=== PATIENT | female | born 1970 | race Caucasian/White ===

== ENCOUNTER → 2019-10-20 09:11 | Outpatient (BNVA) | payer OTHER, SELFPAY | PROVIDERS: Family Provider Family Medicine; PCP Family Medicine; Referring Provider Family Medicine; Visit Provider Specialist | DX: G56.03 Carpal tunnel syndrome, bilateral upper limbs (principal) | CPT/HCPCS: 95910 ==

== ENCOUNTER → 2020-10-23 16:05 | Outpatient (BNVA) | payer OTHER, SELFPAY | PROVIDERS: Family Provider Family Medicine; PCP Family Medicine; Visit Provider Internal Medicine | DX: Z01.812 Encounter for preprocedural laboratory examination (principal) | CPT/HCPCS: 87635 ==

== ENCOUNTER 2020-10-30 08:49 | Day surgery (SDC) | payer OTHER, SELFPAY ==
[2020-10-25 15:37] VITALS: BMI 38.4
--- NOTE | 2020-10-30 09:05 | ANES.PREANE2 ---
Pre-Anesthetic Assessment Pre-Anesthetic Assessment: Height/Weight: Height 1.68 m Weight 107.955 kg Proposed Procedure: Operation Date: 10/30/20 10:15 Proposed Procedures p Colonoscopy 98053 K92.1(Not Applicable) - Chris Howell MD Was Beta John taken within 24 hours: N/A Was Clonidine taken within 24 hours: N/A Social: Social History: Tobacco and No alcohol Exam: Pre-Anes Outpt Exam: alert, oriented x 3 and regular rate & rhythm Airway: Submandibular: WNL Cervical ROM: WNL MP: 2 Dentition: False Pulmonary: Pulmonary: COPD CV/HEM: CV/HEM: HTN Metabolic: Metabolic: Hyperlipidemia, Morbid obesity and Thyroid Anesthetic Plan: ASA status: 3 Anesthesia: MAC Risk of > 500 ml blood loss (7ml/kg in children): No PFSH Anesthesia PFSH: Medical History (Updated 10/18/20 @ 13:48 by Chris Howell MD) Chronic back pain GERD (gastroesophageal reflux disease) Hyperlipidemia Hypertension Hypothyroidism Obesity Surgical History History of esophagogastroduodenoscopy (EGD) (~2017) History of surgery on arm (~2014) LEFT ARM-TENDON REPAIR History of thyroidectomy Status post tonsillectomy (~2013) Family History Father Hypertension Cancer PANCREATIC Diabetes Obesity Mother Hypertension Obesity Denies family history of Anesthesia complication Bleeding disorder Social History Smoking and tobacco status: current every day smoker cigarettes Data Anesthesia Cardiac Studies: No Data to Display
[2020-10-30 09:14] VITALS: RESP 18; TEMP 36.7
--- NOTE | 2020-10-30 09:18 | P.HP_ITS ---
Same Day Surgery H&P Indication for Procedure/HPI DATE OF PROCEDURE: October 30, 2020 CHIEF COMPLAINT/INDICATIONFOR SURGICAL PROCEDURE: Hematochezia PREOP DIAGNOSIS: bleeding PLANNED PROCEDRUE: Operation Date: 10/30/20 10:15 Proposed Procedures p Colonoscopy 09739 K92.1(Not Applicable) - Chris Howell MD Medications/Allergies* Home Medications Medication Instructions Recorded Confirmed Type atorvastatin 20 mg tablet 20 mg PO DAILY 04/21/19 10/25/20 History levothyroxine 175 mcg tablet 175 mcg PO DAILY 04/21/19 10/25/20 History liothyronine 5 mcg tablet 5 mcg PO DAILY 04/21/19 10/25/20 History lisinopril 20 1 tab PO DAILY 04/21/19 10/25/20 History mg-hydrochlorothiazide 25 mg tablet Allergies/Adverse Reactions Allergy/AdvReac Type Severity Reaction Status Date / Time No Known Allergies Allergy Verified 10/18/20 13:05 Pertinent History/Comorbid Conditions* Medical History (Updated 10/18/20 @ 13:48 by Chris Howell MD) Chronic back pain GERD (gastroesophageal reflux disease) Hyperlipidemia Hypertension Hypothyroidism Obesity Surgical History (Updated 04/23/19 @ 15:44 by Desmond Hernandez MD) History of esophagogastroduodenoscopy (EGD) (~2017) History of surgery on arm (~2014) LEFT ARM-TENDON REPAIR History of thyroidectomy Status post tonsillectomy (~2013) Family History (Updated 04/21/19 @ 10:22 by Ellie Yo RN) Diabetes Father Cancer Father PANCREATIC Hypertension Father Mother Obesity Father Mother Denies family history of Anesthesia complication Bleeding disorder Social History Smoking and tobacco status: current every day smoker cigarettes Pertinent Exam Findings alert, oriented x 3, clear to auscultation bilaterally, regular rate & rhythm, operative site marked and procedure specific exam findings Recommendations Surgery/Procedure today Coding Level of Care Code Acute Electrical Maintenance Technician for Antonia Fitzgerald
[2020-10-30 09:20] VITALS: BP 128/95; PULSE 82; RESP 16; TEMP 36.7; O2SAT 95
[2020-10-30] MEDS: sodium chloride 0.9% 1,000 ML 30 ML IV (09:23)
[2020-10-30 11:18] VITALS: BP 115/84; PULSE 76; RESP 16; TEMP 36.3; O2SAT 95
[2020-10-30 11:25] VITALS: BP 126/90; PULSE 75; RESP 16; O2SAT 100
--- NOTE | 2020-10-30 15:31 | ANE.PACU2 ---
Inpatient post-anesthesia follow up: Airway intact: Yes Vital signs: Temperature 97.4 F Pulse Rate 75 Respiratory Rate 16 Blood Pressure 126/90 Pulse Oximetry 100 Oxygen Delivery Me thod Room Air Oxygen Flow Rate Fraction of Inspir ed Oxygen Hydration adequate: Yes Nausea and vomiting: No Pain level: 1 Mental status: Baseline
== END 2020-10-30 11:50 | disposition home or self-care (01) ==
PROVIDERS: PCP Family Medicine; Visit Provider Internal Medicine
PROC: 0DJD8ZZ Inspection of Lower Intestinal Tract, Via Natural or Artificial Opening Endoscopic (ICD-10-PCS; CPT 45378; principal; 2020-10-30 10:15)
DX: K92.1 Melena (principal); K21.9 Gastro-esophageal reflux disease without esophagitis; E78.5 Hyperlipidemia, unspecified; I10 Essential (primary) hypertension; E03.9 Hypothyroidism, unspecified; E66.01 Morbid (severe) obesity due to excess calories; Z68.38 Body mass index [BMI] 38.0-38.9, adult; F17.210 Nicotine dependence, cigarettes, uncomplicated; J44.9 Chronic obstructive pulmonary disease, unspecified
CPT/HCPCS: 45378; 96360; 96361; J2704; J7030

== ENCOUNTER 2021-01-28 16:41 | Emergency (ER) | payer OTHER, SELFPAY ==
--- NOTE | 2021-01-28 16:49 | ED_ITS ---
Documented by User: Silverio Maxwell MD 02/03/21 00:44 HPI - General Adult General: Chief complaint: General Medical Stated complaint: high BP Time Seen by Provider: 01/28/21 16:49 History of Present Illness: HPI narrative: Ms. Ng is a 50-year-old lady with significant past medical history of hypertension, hyperlipidemia, obesity, and hypothyroidism who presents emergency department due to concern for high blood pressure. She reports recent changes in health starting approximately 3 weeks ago. She had a mechanical fall where she fell on outstretched hands. No preceding chest pain, shortness of breath, lightheadedness, dizziness. She was able to ambulate afterwards. No head strike or loss of consciousness. Since that time she has had generalized symptoms of malaise, fatigue, aches, pains. She denies other specific infectious symptoms. She has tracked her blood pressure and noted that is it is elevated despite compliance with her medication regimen. Overall the intensity symptoms is moderate. The course has persisted. No other specific exacerbating or alleviating factors identified. Review of Systems General: Reports: 10 or more systems reviewed and unremarkable except in HPI and below PFSH ED PFSH: Medical History (Updated 01/28/21 @ 19:48 by Micheline Paredes MD) Chronic back pain GERD (gastroesophageal reflux disease) Hyperlipidemia Hypertension Hypothyroidism Obesity Surgical History History of esophagogastroduodenoscopy (EGD) (~2017) History of surgery on arm (~2014) LEFT ARM-TENDON REPAIR History of thyroidectomy Status post tonsillectomy (~2013) Family History Father Hypertension Cancer PANCREATIC Diabetes Obesity Mother Hypertension Obesity Denies family history of Anesthesia complication Bleeding disorder Social History Smoking and tobacco status: current every day smoker cigarettes Physical Exam Narrative: EXAM NARRATIVE: GENERAL/CONSTITUTIONAL - well-appearing. No acute distress. Eyes - PERRL, no conjunctival injection ENMT - Atraumatic external nose and ears. Moist mucous membranes NECK - supple. trachea midline CARDIOVASCULAR - regular rate and rhythm. RESPIRATORY -clear to auscultation bilaterally. ABDOMEN/GI - Nontender/Nondistended. No tenderness to percussion or evidence of peritonitis MSK - tenderness palpation of lumbar spine mostly paraspinal region though some midline. Extremities without obvious deformity or tenderness to palpation SKIN - Warm, Dry NEURO - alert and appropriately oriented. No focal neurologic deficits. Course ED course: - Patient was seen and evaluated by me at bedside - Patient placed on cardiac monitors, IV access obtained - Initial evaluation notable for no acute distress, nontoxic appearance. Mild hypertension noted. - Labs notable for no evidence of endorgan dysfunction related to high blood pressure - Imaging notable for negative chest and lumbar spine - TSH is notably elevated. Patient care handed off to overnight physician Dr. Paredes pending free T4 results and reassessment of patient condition. I did discuss with the patient reason for avoiding acute treatment of mild to moderately elevated blood pressures in the emergency department prior to handoff of care. Vital Signs: Vital signs: Vital Signs Temperature 98.2 F 01/28/21 16:56 Pulse Rate 67 01/28/21 20:30 Respiratory Rate 16 01/28/21 20:30 Blood Pressure 121/89 01/28/21 20:30 Pulse Oximetry 94 01/28/21 20:30 MDM - General Adult Medical Records: Attestation: I reviewed the patient's medical records. Lab Data: Attestation: I reviewed the patient's lab results. Labs: Lab Results 01/28/21 01/28/21 01/28/21 17:21 17:21 17:21 WBC 11.8 10^3/uL H 10 ^3/uL (4.0-10.0) RBC 5.38 10^6/uL H 10 ^6/uL (4.1-5.3) Hgb 16.2 g/dL H g/dL (11.5-15.3) Hct 47.3 % H % (37.0-47.0) MCV 87.9 fl fl (81-99) MCH 30.1 pg pg (28.0-34.0) MCHC 34.2 g/dL g/dL (30.0-36.0) RDW 14.9 % % (12.1-15.1) Plt Count 310 10^3/cmm 10^3 /cmm (130-400) MPV 10.4 fL fL (7.4-10.4) Neut % (Auto) 62.4 % % Lymph % (Auto) 28.3 % % [place] % (Auto) 6.0 % % Eos % (Auto) 2.3 % % Baso % (Auto) 0.6 % % Neut # (Auto) 7.38 10^3/uL 10^3 /uL (1.8-7.7) Lymph # (Auto) 3.3 10^3/uL 10^3/ uL (0.8-4.8) [place] # (Auto) 0.7 10^3/uL 10^3/ uL (0.2-0.9) Eos # (Auto) 0.3 10^3/uL 10^3/ uL (0.0-0.8) Baso # (Auto) 0.1 10^3/uL 10^3/ uL (0.0-0.1) Nucleated RBC % (a uto) 0 % % Nucleated RBCs # 0.0 /100WBC /100W BC Sodium 136 mmol/L mmol/L (136-145) Potassium 4.1 mmol/L mmol/L (3.5-5.1) Chloride 98 mmol/L mmol/L (98-107) Carbon Dioxide 26 mmol/L mmol/L (22-29) Anion Gap 16.1 (5-19) BUN 9 mg/dL mg/dL (6-20) Creatinine 0.8 mg/dL mg/dL (0.5-0.9) GFR Calculation 76.6 mL/min L mL/ min (90-130) Glucose 95 mg/dL mg/dL (65-115) Calculated Osmolal ity 280 mOsm/kg L mOs m/kg (285-295) Calcium 9.3 mg/dL mg/dL (8.5-10.5) TSH 51.06 uIU/mL H uI U/mL (0.27-4.20) Free T4 0.39 ng/dL L ng/d L (0.82-1.77) HCG, Qual Urine Color Urine Appearance Urine pH Ur Specific Gravit y Urine Protein Urine Glucose (UA) Urine Ketones Urine Blood Urine Nitrate Urine Bilirubin Urine Urobilinogen Ur Leukocyte Mellissa ase 01/28/21 01/28/21 17:35 17:35 WBC RBC Hgb Hct MCV MCH MCHC RDW Plt Count MPV Neut % (Auto) Lymph % (Auto) [place] % (Auto) Eos % (Auto) Baso % (Auto) Neut # (Auto) Lymph # (Auto) [place] # (Auto) Eos # (Auto) Baso # (Auto) Nucleated RBC % (a uto) Nucleated RBCs # Sodium Potassium Chloride Carbon Dioxide Anion Gap BUN Creatinine GFR Calculation Glucose Calculated Osmolal ity Calcium TSH Free T4 HCG, Qual Negative (Negative) Urine Color Straw (Yellow) Urine Appearance Clear (CLEAR) Urine pH 6 (5-7) Ur Specific Gravit y 1.020 (1.005-1.030) Urine Protein Neg (Negative) Urine Glucose (UA) Norm (Normal) Urine Ketones Negative (Negative) Urine Blood Neg (Negative) Urine Nitrate Negative (Negative) Urine Bilirubin Neg (Negative) Urine Urobilinogen Norm mg/dL mg/dL (Negative) Ur Leukocyte Mellissa ase Negative (Negative) EKG Data^: EKG 1: Attestation: I personally reviewed and interpreted this EKG as follows: EKG interpretation date: 01/28/21 EKG interpretation time: 17:33 Interpretation: Twelve-lead EKG shows a regular rhythm at a rate of 77. AR interval 146, QRS duration 88, QTc 399. Normal axis. Interpretation: Sinus rhythm. Computer generated interpretation: Chest X-Ray 01/28/21 17:09 IMPRESSION: No acute findings. Radiation Dose CTDIVOL = (mGy): DLP = (mGy-cm) Lumbar Spine X-Ray 01/28/21 17:09 IMPRESSION: 1. Mild degenerative disc space loss and facet arthropathy greatest at L4-S1. 2. No acute vertebral fracture/subluxation. Radiation Dose CTDIVOL = (mGy): DLP = (mGy-cm) Discharge Plan Discharge Patient Disposition: Home Clinical Impression: Hypothyroidism Qualifiers: Hypothyroidism type: unspecified Qualified Code(s): E03.9 - Hypothyroidism, unspecified Condition: Stable Prescriptions: New Synthroid 200 mcg tablet 200 mcg PO DAILY Qty: 60 RF: 0 Discontinued levothyroxine [Synthroid] 175 mcg tablet 175 mcg PO DAILY RF: 0 No Action atorvastatin 20 mg tablet 20 mg PO DAILY RF: 0 liothyronine 5 mcg tablet 5 mcg PO DAILY RF: 0 lisinopril-hydrochlorothiazide 20-25 mg tablet 1 tab PO DAILY RF: 0 Discharge Orders: Discharge ED (Routine); Ordered 01/28/21 Ordered By: Micheline Paredes Referrals: Anil Lutz DO [Primary Care Provider] - 1-3 days Discharge Diet: Advance as tolerated Discharge Activity: Resume usual activity Patient Instructions: Hypothyroidism (ED) Coding Level of Care Code ED User Interface Engineer for Chg Fwd Documented by User: Micheline Paredes MD 01/28/21 20:36 HPI - General Adult General: Chief complaint: General Medical Stated complaint: high BP Time Seen by Provider: 01/28/21 16:49 PFSH ED PFSH: Medical History (Updated 01/28/21 @ 19:48 by Micheline Paredes MD) Chronic back pain GERD (gastroesophageal reflux disease) Hyperlipidemia Hypertension Hypothyroidism Obesity Surgical History History of esophagogastroduodenoscopy (EGD) (~2017) History of surgery on arm (~2014) LEFT ARM-TENDON REPAIR History of thyroidectomy Status post tonsillectomy (~2013) Family History Father Hypertension Cancer PANCREATIC Diabetes Obesity Mother Hypertension Obesity Denies family history of Anesthesia complication Bleeding disorder Social History Smoking and tobacco status: current every day smoker cigarettes Course Vital Signs: Vital signs: Vital Signs Temperature 98.2 F 01/28/21 16:56 Pulse Rate 67 01/28/21 20:30 Respiratory Rate 16 01/28/21 20:30 Blood Pressure 121/89 01/28/21 20:30 Pulse Oximetry 94 01/28/21 20:30 MDM - General Adult MDM Narrative: Medical decision making narrative: Patient presents here with some weakness found to be hypothyroid. She has had her thyroid takes 175 mcg of Synthroid a day. Her TSH here was elevated will increase her thyroid to 200 mics and she is to follow-up with PCP in 1 to 2 weeks. She is return if worsening she understands agrees to plan. Lab Data: Labs: Lab Results 01/28/21 01/28/21 01/28/21 17:21 17:21 17:21 WBC 11.8 10^3/uL H 10 ^3/uL (4.0-10.0) RBC 5.38 10^6/uL H 10 ^6/uL (4.1-5.3) Hgb 16.2 g/dL H g/dL (11.5-15.3) Hct 47.3 % H % (37.0-47.0) MCV 87.9 fl fl (81-99) MCH 30.1 pg pg (28.0-34.0) MCHC 34.2 g/dL g/dL (30.0-36.0) RDW 14.9 % % (12.1-15.1) Plt Count 310 10^3/cmm 10^3 /cmm (130-400) MPV 10.4 fL fL (7.4-10.4) Neut % (Auto) 62.4 % % Lymph % (Auto) 28.3 % % [place] % (Auto) 6.0 % % Eos % (Auto) 2.3 % % Baso % (Auto) 0.6 % % Neut # (Auto) 7.38 10^3/uL 10^3 /uL (1.8-7.7) Lymph # (Auto) 3.3 10^3/uL 10^3/ uL (0.8-4.8) [place] # (Auto) 0.7 10^3/uL 10^3/ uL (0.2-0.9) Eos # (Auto) 0.3 10^3/uL 10^3/ uL (0.0-0.8) Baso # (Auto) 0.1 10^3/uL 10^3/ uL (0.0-0.1) Nucleated RBC % (a uto) 0 % % Nucleated RBCs # 0.0 /100WBC /100W BC Sodium 136 mmol/L mmol/L (136-145) Potassium 4.1 mmol/L mmol/L (3.5-5.1) Chloride 98 mmol/L mmol/L (98-107) Carbon Dioxide 26 mmol/L mmol/L (22-29) Anion Gap 16.1 (5-19) BUN 9 mg/dL mg/dL (6-20) Creatinine 0.8 mg/dL mg/dL (0.5-0.9) GFR Calculation 76.6 mL/min L mL/ min (90-130) Glucose 95 mg/dL mg/dL (65-115) Calculated Osmolal ity 280 mOsm/kg L mOs m/kg (285-295) Calcium 9.3 mg/dL mg/dL (8.5-10.5) TSH 51.06 uIU/mL H uI U/mL (0.27-4.20) Free T4 0.39 ng/dL L ng/d L (0.82-1.77) HCG, Qual Urine Color Urine Appearance Urine pH Ur Specific Gravit y Urine Protein Urine Glucose (UA) Urine Ketones Urine Blood Urine Nitrate Urine Bilirubin Urine Urobilinogen Ur Leukocyte Mellissa ase 01/28/21 01/28/21 17:35 17:35 WBC RBC Hgb Hct MCV MCH MCHC RDW Plt Count MPV Neut % (Auto) Lymph % (Auto) [place] % (Auto) Eos % (Auto) Baso % (Auto) Neut # (Auto) Lymph # (Auto) [place] # (Auto) Eos # (Auto) Baso # (Auto) Nucleated RBC % (a uto) Nucleated RBCs # Sodium Potassium Chloride Carbon Dioxide Anion Gap BUN Creatinine GFR Calculation Glucose Calculated Osmolal ity Calcium TSH Free T4 HCG, Qual Negative (Negative) Urine Color Straw (Yellow) Urine Appearance Clear (CLEAR) Urine pH 6 (5-7) Ur Specific Gravit y 1.020 (1.005-1.030) Urine Protein Neg (Negative) Urine Glucose (UA) Norm (Normal) Urine Ketones Negative (Negative) Urine Blood Neg (Negative) Urine Nitrate Negative (Negative) Urine Bilirubin Neg (Negative) Urine Urobilinogen Norm mg/dL mg/dL (Negative) Ur Leukocyte Mellissa ase Negative (Negative) Imaging Data^: Other Xray: Attestation: I personally reviewed and interpreted this imaging study as follows: Radiologist's impression: [address] [place] [address] XRay Report Signed Patient: Tara Ng Unit #: [id number] : 1970 Age/Sex: 50 / F ADM Date: 01/28/21 Loc: ER Room/Bed: Attending Dr: Ordering Provider/Ordering MD: Silverio Maxwell MD Date of Service: 01/28/21 Procedure(s): XR lumbar spine 2-3V* [id number] Accession Number(s): [id number] Report Number: [id number] PROCEDURE INFORMATION: Exam: XR Lumbosacral Spine Exam date and time: 01/28/2021 5:09 PM Age: 50 years old Clinical indication: Low back pain; Additional info: Low back pain sp fall TECHNIQUE: Imaging protocol: XR of the lumbosacral spine. Views: 2 or 3 views. COMPARISON: CT abdomen pelvis w con* [id number] 2018-09-11 14:38 FINDINGS: Bones/joints: Mild degenerative disc space loss and facet arthropathy greatest at L4-S1. No acute vertebral fracture/subluxation. Soft tissues: Unremarkable. XR/XR lumbar spine 2-3V* [id number] IMPRESSION: 1. Mild degenerative disc space loss and facet arthropathy greatest at L4-S1. 2. No acute vertebral fracture/subluxation. Radiation Dose CTDIVOL = (mGy): DLP = (mGy-cm) Dictated By: Patrice Jefferson MD Signed By: Patrice Jefferson MD Signed Date/Time: 01/28/211914 DD/ 08 CXR: Radiologist's impression: [address] [address] XRay Report Signed Patient: Tara Ng Unit #: [id number] : 1970 Age/Sex: 50 / F ADM Date: 01/28/21 Loc: ER Room/Bed: Attending Dr: Ordering Provider/Ordering MD: Silverio Maxwell MD Date of Service: 01/28/21 Procedure(s): XR chest 1V portable [id number] Accession Number(s): [id number] Report Number: [id number] PROCEDURE INFORMATION: Exam: XR Chest Exam date and time: 01/28/2021 5:09 PM Age: 50 years old Clinical indication: Pain; Angina pectoris and chest pressure; Additional info: Chest discomfort TECHNIQUE: Imaging protocol: XR of the chest. Views: 1 view. COMPARISON: CT abdomen pelvis w con* [id number] 2018-09-11 14:38 FINDINGS: Lungs: Unremarkable. No consolidation. Pleural spaces: Unremarkable. No pleural effusion. No pneumothorax. Heart/Mediastinum: Unremarkable. No cardiomegaly. Bones/joints: Unremarkable. XR/XR chest 1V portable [id number] IMPRESSION: No acute findings. Radiation Dose CTDIVOL = (mGy): DLP = (mGy-cm) Dictated By: Patrice Jefferson MD Signed By: Patrice Jefferson MD Signed Date/Time: 01/28/211914 DD/ 08 EKG Data^: EKG 1: Computer generated interpretation: Chest X-Ray 01/28/21 17:09 IMPRESSION: No acute findings. Radiation Dose CTDIVOL = (mGy): DLP = (mGy-cm) Lumbar Spine X-Ray 01/28/21 17:09 IMPRESSION: 1. Mild degenerative disc space loss and facet arthropathy greatest at L4-S1. 2. No acute vertebral fracture/subluxation. Radiation Dose CTDIVOL = (mGy): DLP = (mGy-cm) Discharge Plan Discharge Patient Disposition: Home Clinical Impression: Hypothyroidism Qualifiers: Hypothyroidism type: unspecified Qualified Code(s): E03.9 - Hypothyroidism, unspecified Condition: Stable Prescriptions: New Synthroid 200 mcg tablet 200 mcg PO DAILY Qty: 60 RF: 0 Discontinued levothyroxine [Synthroid] 175 mcg tablet 175 mcg PO DAILY RF: 0 No Action atorvastatin 20 mg tablet 20 mg PO DAILY RF: 0 liothyronine 5 mcg tablet 5 mcg PO DAILY RF: 0 lisinopril-hydrochlorothiazide 20-25 mg tablet 1 tab PO DAILY RF: 0 Discharge Orders: Discharge ED (Routine); Ordered 01/28/21 Ordered By: Micheline Paredes Referrals: Anil Lutz DO [Primary Care Provider] - 1-3 days Discharge Diet: Advance as tolerated Discharge Activity: Resume usual activity Patient Instructions: Hypothyroidism (ED) Coding Level of Care Code ED User Interface Engineer for Jeffg Amilcar
[2021-01-28 16:56] VITALS: BP 141/102; PULSE 89; RESP 19; TEMP 36.8; O2SAT 95; BMI 35.5
--- NOTE | 2021-01-28 17:09 | XRR_ITS ---
PROCEDURE INFORMATION: Exam: XR Lumbosacral Spine Exam date and time: 01/28/2021 5:09 PM Age: 50 years old Clinical indication: Low back pain; Additional info: Low back pain sp fall TECHNIQUE: Imaging protocol: XR of the lumbosacral spine. Views: 2 or 3 views. COMPARISON: CT abdomen pelvis w con* [id number] 2018-09-11 14:38 FINDINGS: Bones/joints: Mild degenerative disc space loss and facet arthropathy greatest at L4-S1. No acute vertebral fracture/subluxation. Soft tissues: Unremarkable. XR/XR lumbar spine 2-3V* [id number] IMPRESSION: 1. Mild degenerative disc space loss and facet arthropathy greatest at L4-S1. 2. No acute vertebral fracture/subluxation. Radiation Dose CTDIVOL = (mGy): DLP = (mGy-cm)
--- NOTE | 2021-01-28 17:09 | ECG_ITS ---
[facility] Test Date: 2021-01-28 Pat Name: Tara Ng Department: Room: Gender: Female Rn Perinatal: : 1970 Requested By: Silverio Maxwell Order Number: [id number] Vick MD: Ronnie Arcos M.D. Measurements Intervals [place] Rate: 77 P: 71 [place]: 146 QRS: 32 QRSD: 88 T: 69 QT: 367 QTc: 418 Interpretive Statements SINUS RHYTHM LOW QRS VOLTAGE IN PRECORDIAL LEADS [QRS DEFLECTION < 1.0 mV IN CHEST LEADS] No previous ECG available for comparison Electronically Signed On 01-29-2021 19:59:38 [employer] [employer] [facility] by Ronnie Arcos M.D. [id number]
--- NOTE | 2021-01-28 17:09 | XRR_ITS ---
PROCEDURE INFORMATION: Exam: XR Chest Exam date and time: 01/28/2021 5:09 PM Age: 50 years old Clinical indication: Pain; Angina pectoris and chest pressure; Additional info: Chest discomfort TECHNIQUE: Imaging protocol: XR of the chest. Views: 1 view. COMPARISON: CT abdomen pelvis w con* [id number] 2018-09-11 14:38 FINDINGS: Lungs: Unremarkable. No consolidation. Pleural spaces: Unremarkable. No pleural effusion. No pneumothorax. Heart/Mediastinum: Unremarkable. No cardiomegaly. Bones/joints: Unremarkable. XR/XR chest 1V portable [id number] IMPRESSION: No acute findings. Radiation Dose CTDIVOL = (mGy): DLP = (mGy-cm)
[2021-01-28 17:25] VITALS: BP 132/96; PULSE 73; RESP 18; O2SAT 92
[2021-01-28 17:28] LABS: Basophils # 0.1 10^3/uL (0.0-0.1); Basophils % 0.6 %; Eosinophils # 0.3 10^3/uL (0.0-0.8); Eosinophils % 2.3 %; Hematocrit 47.3 % (37.0-47.0); Hemoglobin 16.2 g/dL (11.5-15.3); Lymphocytes # 3.3 10^3/uL (0.8-4.8); Lymphocytes % 28.3 %; Mean Corpuscular HGB Conc 34.2 g/dL (30.0-36.0); Mean Corpuscular Hemoglobin 30.1 pg (28.0-34.0); Mean Corpuscular Volume 87.9 fl (81-99); Mean Platelet Volume 10.4 fL (7.4-10.4); Monocytes # 0.7 10^3/uL (0.2-0.9); Neutrophils # 7.38 10^3/uL (1.8-7.7); Neutrophils % 62.4 %; Nucleated Red Blood Cells % 0 %; Platelet Count 310 10^3/cmm (130-400); Red Blood Count 5.38 10^6/uL (4.1-5.3); Red Cell Distribution Width 14.9 % (12.1-15.1); White Blood Count 11.8 10^3/uL (4.0-10.0)
[2021-01-28 17:35] VITALS: BP 139/96; PULSE 73; RESP 19; O2SAT 95
[2021-01-28 17:44] LABS: Add Urine Microscopic? NO; Charge for UA Resulting for Rev
[2021-01-28 17:48] LABS: Bilirubin Urine Neg (Negative); Blood Urine Neg (Negative); Glucose Urine UA Norm (Normal); Ketones Urine Negative (Negative); Leukocyte Esterase Urine Negative (Negative); Nitrate Urine Negative (Negative); Protein Urine Neg (Negative); Urine Appearance Clear (CLEAR); Urine Color Straw (Yellow); Urobilinogen Urine Norm (Negative); pH Urine 6 (5-7)
[2021-01-28] MEDS: ketorolac 30 mg/mL INJ 15 MG IVP (17:59)
[2021-01-28] MEDS: sodium chloride 0.9% 1,000 ML 999 ML IV (18:00)
[2021-01-28 18:14] LABS: Anion Gap 16.1 (5-19); Blood Urea Nitrogen 9 mg/dL (6-20); Calcium 9.3 mg/dL (8.5-10.5); Carbon Dioxide 26 mmol/L (22-29); Chloride 98 mmol/L (98-107); Glomerular Filtration Rate 76.6 mL/min (90-130); Glucose 95 mg/dL (65-115); Osmolality Calculated 280 mOsm/kg (285-295); Potassium 4.1 mmol/L (3.5-5.1); Sodium 136 mmol/L (136-145); Thyroid Stimulating Hormone 51.06 uIU/mL (0.27-4.20)
[2021-01-28 18:47] LABS: HCG Qualitative Urine. Negative (Negative)
[2021-01-28] MEDS: diphenhydrAMINE 50 mg/mL SDV 1mL 25 MG IVP (19:18)
[2021-01-28] MEDS: magnesium sulfate premix 2 GM/50 ML PIGGYBACK IV (19:18)
[2021-01-28] MEDS: metoclopramide 5 mg/mL SDV 2 mL 10 MG IVP (19:18)
[2021-01-28 20:26] VITALS: BP 136/88; PULSE 69; RESP 32; O2SAT 94
[2021-01-28 20:30] VITALS: BP 121/89; PULSE 67; RESP 16; O2SAT 94
[2021-01-28 22:51] LABS: Free T4 Free Thyroxine 0.39 ng/dL (0.82-1.77)
== END 2021-01-28 20:41 | disposition home or self-care (01) ==
PROVIDERS: Emergency Medicine; Emergency Provider Emergency Medicine; PCP Family Medicine
DX: E03.9 Hypothyroidism, unspecified (principal); E78.5 Hyperlipidemia, unspecified; I10 Essential (primary) hypertension; F17.210 Nicotine dependence, cigarettes, uncomplicated
CPT/HCPCS: 71045; 72100; 80048; 81003; 81025; 84439; 84443; 85025; 93005; 96365; 96375; 99284; J1200; J1885; J2765; J3475; J7030

== ENCOUNTER 2021-07-12 11:03 | Outpatient (CLI) | payer OTHER, SELFPAY ==
--- NOTE | 2021-07-12 11:15 | USCV_ITS ---
Tara Ng Age: 50 Gender: F : 1970 Exam Date: 07/12/2021 11:52 Ordering Phys: Chris Howell MD Technologist: Patricio Kapadia Exam Location: [facility] [place] Indication: chest pain BP: 132 / 74 HR: 87 Rhythm: Sinus Technical Quality: Adequate MEASUREMENTS (Male / Female) Normal Values 2D ECHO LV Diastolic Diameter PLAX 3.4 cm 4.2 - 5.9 / 3.9 - 5.3 cm LV Systolic Diameter PLAX 2.6 cm IVS Diastolic Thickness 1.1 cm 0.6 - 1.0 / 0.6 - 0.9 cm IVS Systolic Thickness 1.6 cm LVPW Diastolic Thickness 1.1 cm 0.6 - 1.0 / 0.6 - 0.9 cm LVPW Systolic Thickness 1.2 cm LVOT Diameter 2.0 cm LV Ejection Fraction 2D Teich 45.1 % LV Ejection Fraction MOD 2C 76.7 % LV Ejection Fraction 2C AL 76.6 % LA Diameter 3.1 cm Aorta at Sinotubular Diameter 2.4 cm M-MODE Aortic Annulus Diameter 2.8 cm LA Ao Ratio MM 1.3 MV E Point Septal Separation 0.7 cm DOPPLER AV Peak Velocity 129.0 cm/s LVOT Peak Velocity 91.0 cm/s AV Area Cont Eq vti 2.4 cm squared AV Area Cont Eq pk 2.3 cm squared MV Area PHT 5.0 cm squared Mitral E to A Ratio 1.4 MV E' Velocity 54.5 cm/s Mitral E to MV E' Ratio 7.7 Mitral E to LV E' Lateral Ratio 6.2 Mitral E to LV E' Septal Ratio 10.3 TR Peak Velocity 160.0 cm/s TR Peak Gradient 10.2 mmHg TV Peak E Velocity 106.0 cm/s Right Atrial Pressure 3.0 mmHg Pulmonary Artery Systolic Pressu 13.2 mmHg PV Peak Velocity 113.0 cm/s FINDINGS Left Ventricle Normal left ventricular size and systolic function, EF 69 %. No regional wall motion abnormalities. Right Ventricle The right ventricle is normal in size and function. Right Atrium The right atrium is normal in size. Left Atrium The left atrium is normal in size. Mitral Valve No gross abnormalities noted Aortic Valve Appears to be thickened. Leaflets could not be delineated valve Tricuspid Valve No gross abnormalities noted Pulmonic Valve Pulmonic valve not well visualized. Pericardium Normal pericardium without effusion. Aorta Normal ascending aorta dimension. CONCLUSIONS Normal left ventricular size and systolic function, EF 69 %. No regional wall motion abnormalities. Appears to be thickened. Leaflets could not be delineated valve. Possibly normal chamber sizes. No intracardiac masses. No significant pericardial effusion Dr Ronnie Arcos MD FACC (Electronically Signed) Final Date: 12 Jul 2021 21:08 S
== END 2021-07-12 11:04 | disposition home or self-care (01) ==
PROVIDERS: PCP Family Medicine; Visit Provider Internal Medicine
DX: R60.0 Localized edema (principal)
CPT/HCPCS: 80053; 84443; 93306

== ENCOUNTER → 2022-08-19 15:30 | Outpatient (BNVA) | payer OTHER, SELFPAY | PROVIDERS: PCP Family Medicine; Referring Provider Internal Medicine; Visit Provider Obstetrics & Gynecology | DX: Z01.419 Encounter for gynecological examination (general) (routine) without abnormal findings (principal) | CPT/HCPCS: 87624 ==

== ENCOUNTER → 2022-10-01 15:20 | Outpatient (BNVA) | payer OTHER, SELFPAY | PROVIDERS: PCP Family Medicine; Visit Provider Obstetrics & Gynecology | DX: R60.0 Localized edema (principal) | CPT/HCPCS: 76830 ==

== ENCOUNTER 2022-11-07 08:39 | Day surgery (SDC) | payer OTHER, SELFPAY ==
--- NOTE | 2022-11-05 17:53 | P.HP_ITS ---
Same Day Surgery H&P Indication for Procedure/HPI DATE OF PROCEDURE: November 05, 2022 CHIEF COMPLAINT/INDICATIONFOR SURGICAL PROCEDURE: abnormal uterine bleeding PREOP DIAGNOSIS: abnormal uterine bleeding PLANNED PROCEDURE: Operation Date: 11/07/22 10:15 Proposed Procedures p Hysteroscopy, emdometrial sampling, possible endometrial polypectomy with Laila hardy 48781,N93.9(Not Applicable) - Shreyas Albarran MD s Poss Poylpectomy(Not Applicable) - Shreyas Albarran MD 51 y.o. Periods stopped in October 2021 Prior to October 2021, periods were normal and regular Began to have bleeding in June 2022 Heavy and painful Lasted 7 days with clots and very heavy Now scheduled for hysteroscopy, endometrial sampling, possible endometrial polypectomy Medications/Allergies* Home Medications Medication Instructions Recorded Confirmed Type atorvastatin 20 mg tablet 20 mg PO DAILY 04/21/19 10/07/22 History liothyronine 5 mcg tablet 5 mcg PO DAILY 04/21/19 10/07/22 History Allergies/Adverse Reactions Allergy/AdvReac Type Severity Reaction Status Date / Time No Known Allergies Allergy Verified 10/07/22 15:02 Pertinent History/Comorbid Conditions* Medical History (Updated 08/22/22 @ 22:46 by Shreyas Albarran MD) Chronic back pain GERD (gastroesophageal reflux disease) Hyperlipidemia Hypertension Hypothyroidism Obesity Surgical History (Updated 04/23/19 @ 15:44 by Desmond Hernandez MD) History of esophagogastroduodenoscopy (EGD) (~2017) History of surgery on arm (~2014) LEFT ARM-TENDON REPAIR History of thyroidectomy Status post tonsillectomy (~2013) Family History (Updated 04/21/19 @ 10:22 by Ellie Yo, MORA) Diabetes Father Cancer Father PANCREATIC Hypertension Father Mother Obesity Father Mother Denies family history of Anesthesia complication Bleeding disorder Pertinent Exam Findings alert, oriented x 3, clear to auscultation bilaterally and regular rate & rhythm Recommendations Surgery/Procedure today Other Plans: plan surgery / procedure November 07, 2022 Coding Level of Care Code Acute Code for Chg Fwd Diagnoses Time Spent (min) 20
[2022-11-06 12:32] VITALS: BMI 36.1
[2022-11-07] VITALS (9 sets, daily range): BP systolic 124–161; BP diastolic 78–101; PULSE 52–75; RESP 16–18; TEMP 36.1–36.3; O2SAT 92–100
[2022-11-07] MEDS: sodium chloride 0.9% 1,000 ML 30 ML IV (09:19)
--- NOTE | 2022-11-07 09:53 | ANES.PREANE2 ---
Pre-Anesthetic Assessment Height/Weight: Height 1.68 m Weight 101.605 kg Temp Pulse Resp BP Pulse Ox O2 Del Method 97.3 F L 75 18 124/94 97 Room Air 11/07/22 09:05 11/07/22 09:05 11/07/22 09:05 11/07/22 09:05 11/07/22 09:05 11/07/22 09:12 Preop Diagnosis: abnormal uterine bleeding Operation Date: 11/07/22 10:15 Proposed Procedures p Hysteroscopy, emdometrial sampling, possible endometrial polypectomy with Myosure 64179,N93.9(Not Applicable) - Shreyas Albarran MD s Poss Poylpectomy(Not Applicable) - Shreyas Albarran MD Familial anesthetic complications: None Was Beta John taken within 24 hours: N/A Was Clonidine taken within 24 hours: N/A Last intake: Intake Last Liquid Date 11/06/22 Last Liquid Time 22:00 Last Solid Date 11/06/22 Last Solid Time 18:00 Social No alcohol and No tobacco Exam alert, oriented x 3, clear to auscultation bilaterally and regular rate & rhythm Airway Mallampati: Class III Dentition: false Comments: Comments: recessed jaw Pulmonary Sleep Apnea CV/HEM Hypertension Metabolic Hyperlipidemia, Morbid Obesity and Thyroid Disease Anesthetic Plan ASA status: 3 Anesthesia: General Risk of > 500 ml blood loss (7ml/kg in children): No Medications/Allergies Home Medications Medication Instructions Recorded Confirmed Last Taken Type atorvastatin 20 mg tablet 20 mg PO DAILY 04/21/19 11/06/22 11/06/22 History liothyronine 5 mcg tablet 5 mcg PO DAILY 04/21/19 11/06/22 11/06/22 History levothyroxine 200 mcg tablet 200 mcg PO DAILY #60 tabs 01/28/21 11/06/22 11/06/22 Rx (Synthroid) spironolactone 25 1 tab PO DAILY #90 tabs 05/30/21 11/06/22 11/06/22 Rx mg-hydrochlorothiazide 25 mg tablet (Aldactazide) vilazodone 20 mg tablet 20 mg PO DAILY 11/06/22 11/06/22 11/06/22 History Allergies Allergy/AdvReac Type Severity Reaction Status Date / Time No Known Allergies Allergy Verified 11/07/22 09:00 Current Medications Generic Name Dose Route Start Last Admin Trade Name Sagrario PRN Reason Stop Dose Admin Sodium Chloride 1,000 mls @ 30 mls/hr 11/07/22 09:00 11/07/22 09:19 Sodium Chloride 0.9% IV 11/08/22 08:59 30 mls/hr .Q24H JAIMIE Administration PFSH Anesthesia Medical History Chronic back pain GERD (gastroesophageal reflux disease) Hyperlipidemia Hypertension Hypothyroidism Obesity Surgical History History of esophagogastroduodenoscopy (EGD) (~2017) History of surgery on arm (~2014) LEFT ARM-TENDON REPAIR History of thyroidectomy Status post tonsillectomy (~2013) Family History Father Hypertension Cancer PANCREATIC Diabetes Obesity Mother Hypertension Obesity Denies family history of Anesthesia complication Bleeding disorder Data Anesthesia Cardiac Studies: Echocardiogram 07/12/21
--- NOTE | 2022-11-07 10:02 | W.PM.OPSUD ---
Surgery/Procedure H&P Update DATE OF PROCEDURE: November 07, 2022 DATE H&P PERFORMED: 11/05/22 H&P UPDATE INFORMATION: I have reviewed H&P completed within last 30 days, I have examined patient prior to procedure and No changes to prior documentation PREOP DIAGNOSIS: abnormal uterine bleeding PLANNED PROCEDURE: Operation Date: 11/07/22 10:15 Proposed Procedures p Hysteroscopy, emdometrial sampling, possible endometrial polypectomy with Myosure 76499,N93.9(Not Applicable) - Shreyas Ablarran MD s Poss Poylpectomy(Not Applicable) - Shreyas Albarran MD
--- NOTE | 2022-11-07 11:53 | SUR.PHASEI ---
Lung sounds clear
--- NOTE | 2022-11-07 12:10 | PM.OP ---
Operative Report Date of procedure: November 07, 2022 Pre-op diagnosis: abnormal uterine bleeding Post-op diagnosis: same Post-op findings: moderate endometrial tissue in patches No polyps or fibroids Procedure done: hysteroscopy Endometrial sampling with Myosure Specimens removed/disposition: endometrial tissue Surgeon: Shreyas Albarran MD Anesthesia: MAC Estimated blood loss (mL): 0 Complications: none Condition: stable Disposition: PACU Brief History: 51 y.o. Periods stopped in October 2021 Prior to October 2021, periods were normal and regular Began to have bleeding in June 2022 Heavy and painful Lasted 7 days with clots and very heavy Procedure: Informed consent signed. Patient was taken to the operating room. Anesthesia was induced. Patient was placed in dorsolithotomy position, prepped and draped for hysteroscopy. A bivalve speculum was placed in the vagina. The anterior lip of the cervix was grasped with a sharp-toothed tenaculum. The cervix was serially dilated with Hegar dilators. . A hysteroscope was placed into the endometrial cavity. The endometrial cavity was seen have patches of endometrial tissue. There were no polyps or fibroids. A Myosure was then inserted and the patches were sampled, removing as much of the endometrium as possible. The endometrial cavity was seen to be intact. The hysteroscope and Myosure were then removed. Endometrial curettage was done with a sharp curette. Endometrial tissue was sent to pathology. The sharp-toothed tenaculum was removed. There was no bleeding from the endometrial cavity or cervix. The patient was then placed supine and awakened and taken to the PACU. Postop condition: stable EBL: none Sponge and instruments counts were normal x 2 Complications: none
--- NOTE | 2022-11-07 12:42 | SUR.PHASEII ---
PATIENT WAS INSTRUCTED TO GO TO THE ER IF SHE EXPERIENCES A FEVER, N/V , CONGESTION. LUNGS WERE CLEAR UPON DISCHARGE O2 SATS >95 DENIED NAUSEA NO SOB.. PATIENT VERBALIZED UNDERSTANDING TO COME TO ER IF ANY OF THESE SYMPTOMS OCCUR.
--- NOTE | 2022-11-07 12:45 | ANE.PACU2 ---
Inpatient post-anesthesia follow up: Airway intact: Yes Vital signs: Temperature 97.2 F Pulse Rate 52 Respiratory Rate 16 Blood Pressure 139/92 Pulse Oximetry 95 Oxygen Delivery Me thod Room Air Oxygen Flow Rate 6 Fraction of Inspir ed Oxygen Hydration adequate: Yes Nausea and vomiting: No Pain level: 1 Mental status: Baseline
== END 2022-11-07 12:46 | disposition home or self-care (01) ==
PROVIDERS: PCP Family Medicine; Visit Provider Obstetrics & Gynecology
PROC: 0UDB8ZZ Extraction of Endometrium, Via Natural or Artificial Opening Endoscopic (ICD-10-PCS; CPT 58558; principal; 2022-11-07 10:15)
DX: N93.9 Abnormal uterine and vaginal bleeding, unspecified (principal); G47.30 Sleep apnea, unspecified; I10 Essential (primary) hypertension; E78.5 Hyperlipidemia, unspecified; E66.01 Morbid (severe) obesity due to excess calories; Z68.36 Body mass index [BMI] 36.0-36.9, adult; K21.9 Gastro-esophageal reflux disease without esophagitis; E03.9 Hypothyroidism, unspecified
CPT/HCPCS: 58558; 81025; 88305; J1100; J2405; J2704; J3010; J7030

== ENCOUNTER 2023-03-18 06:00 | Outpatient (RCR) | payer OTHER, SELFPAY | END 2023-04-09 23:59 | disposition home or self-care (01) | LOC: MPT 06:00 | PROVIDERS: Visit Provider Internal Medicine | DX: M54.32 Sciatica, left side (principal) | CPT/HCPCS: 97110; 97140; 97162; G0283 ==

== ENCOUNTER 2023-04-10 06:00 | Outpatient (RCR) | payer OTHER, SELFPAY | END 2023-05-08 23:59 | disposition home or self-care (01) | LOC: MPT 06:00 | PROVIDERS: Visit Provider Internal Medicine | DX: M54.32 Sciatica, left side (principal) | CPT/HCPCS: 97110; G0283 ==

== ENCOUNTER 2023-05-09 06:00 | Outpatient (RCR) | payer OTHER, SELFPAY | END 2023-06-04 23:59 | disposition home or self-care (01) | LOC: MPT 06:00 | PROVIDERS: Visit Provider Internal Medicine | DX: M54.32 Sciatica, left side (principal) | CPT/HCPCS: 97110; G0283 ==

== ENCOUNTER 2023-07-04 12:57 | Outpatient (CLI) | payer OTHER, SELFPAY ==
--- NOTE | 2023-07-04 13:00 | MR_ITS ---
WS: [id number] MRI LUMBAR SPINE NONCONTRAST TECHNIQUE: Sagittal T1, T2 and STIR imaging. Axial T1 and T2 imaging. CLINICAL INFORMATION: LUMBAR BACK PAIN W/RADICULOPATHY AFFECTING LOWER EXTREMITY COMPARISON: None. FINDINGS: Mild lumbar curve. No acute compression. Mild annular bulging L4-L5 and L5-S1. Slight anterolisthesis L5 on S1. L1-L2: Mild facet arthropathy. Spinal canal and foramen are patent. L2-L3: Mild annular bulging. Slight narrowing the subarticular recess bilaterally. Mild facet arthrop athy. Spinal canal and foramen are patent. L3-L4: Mild annular bulging. Slight narrowing of the RIGHT subarticular recess. Mild facet arthropath y. Spinal canal and foramen are patent. L4-L5: Mild annular bulging. Moderate central canal stenosis. Impingement of traversing L5 nerve root s bilaterally. Moderate facet arthropathy with ligamentum flavum hypertrophy. Small facet effusions. Mild bilateral foraminal narrowing. L5-S1: Slight anterolisthesis L5 on S1. Shallow central protrusion with slight impingement of ben ing LEFT greater than RIGHT S1 nerve roots. Mild LEFT foraminal narrowing. Moderate facet arthropathy . Mild central canal stenosis. Visualized pelvic bony structures: Normal. Paravertebral soft tissues: Normal. Shallow central protrusion T11-T12. Shallow central protrusions in the cervical spine tobacco cloth reclaimer imaging at C5-C6 and C6-C7. This could be fur ther evaluated with cervical spine MRI. IMPRESSION: 1. Mild lumbar curve. No acute compression. 2. Moderate central canal stenosis L4-5 due to disc bulging in combination with facet arthropathy an d ligamentum flavum hypertrophy. Impingement of the subarticular recess bilaterally with small facet effusions. Mild bilateral foraminal narrowing at this level LEFT greater than RIGHT. 3. Shallow central disc protrusion L5-S1 impinges the traversing S1 nerve roots LEFT greater than RI GHT. Moderate facet arthropathy with mild central canal stenosis at this level. Slight anterolisthesi s L5 on S1. 4. Mild annular bulging L3-4 with slight narrowing of the RIGHT subarticular recess. 5. Moderate facet arthropathy L4-L5 and L5-S1 with edema in the L4 facets also involving the LEFT L4 and L5 pedicles and lamina compatible with synovitis likely inflammatory. This also can be seen with instability.
== END 2023-07-04 12:58 | disposition home or self-care (01) ==
LOC: RAD 12:57
PROVIDERS: Visit Provider Internal Medicine
DX: M48.061 Spinal stenosis, lumbar region without neurogenic claudication (principal); M51.27 Other intervertebral disc displacement, lumbosacral region; M51.16 Intervertebral disc disorders with radiculopathy, lumbar region
CPT/HCPCS: 72148

== ENCOUNTER 2023-07-30 08:20 | Outpatient (CLI) | payer OTHER, SELFPAY ==
--- NOTE | 2023-07-30 08:29 | MM_ITS ---
WS: [id number] VIEWS: MLO and CC views both breasts. 3D digital tomosynthesis is also included in this exam. Comparison made with prior exam of 08/07/2016. Findings: There was no sign of mass, architectural distortion or suspicious calcification in either breast. The re are scattered areas of fibroglandular density. MM/[place] [id number] Impression: BI-RADS: 2-Benign finding. FOLLOW-UP: 1 Year Follow-up This mammogram was also analyzed by the Computer Aided Detection System R2 Imag [employer] Business Rules Developer.
== END 2023-07-30 08:21 | disposition home or self-care (01) ==
LOC: RAD 08:22
PROVIDERS: PCP Internal Medicine; Visit Provider Family Medicine
DX: Z12.31 Encounter for screening mammogram for malignant neoplasm of breast (principal); R92.323 Mammographic fibroglandular density, bilateral breasts
CPT/HCPCS: 77063; 77067

== ENCOUNTER → 2023-11-24 13:38 | Outpatient (BNVA) | payer OTHER, SELFPAY | PROVIDERS: PCP Internal Medicine; Referring Provider Family Medicine; Visit Provider Internal Medicine | DX: I49.8 Other specified cardiac arrhythmias (principal); R07.9 Chest pain, unspecified | CPT/HCPCS: 93005 ==

== ENCOUNTER 2023-12-25 06:01 | Outpatient (CLI) | payer OTHER, SELFPAY ==
--- NOTE | 2023-12-25 06:15 | USCV_ITS ---
Tara Ng Age: 53 Gender: F : 1970 Exam Date: 12/25/2023 06:11 Ordering Phys: Byron Gordon M.D ([email or web address]) Technologist: [place] [facility] [place]: ? mr BP: 120 / 88 HR: 80 Rhythm: Sinus Technical Quality: Adequate MEASUREMENTS (Male / Female) Normal Values 2D ECHO LV Diastolic Diameter PLAX 4.5 cm 4.2 - 5.9 / 3.9 - 5.3 cm IVS Diastolic Thickness 0.9 cm 0.6 - 1.0 / 0.6 - 0.9 cm IVS Systolic Thickness 1.4 cm LVPW Diastolic Thickness 1.3 cm 0.6 - 1.0 / 0.6 - 0.9 cm LVPW Systolic Thickness 1.6 cm LVOT Diameter 1.8 cm LV Ejection Fraction 2D Teich 64.6 % LV Ejection Fraction MOD 4C 70.7 % LV Ejection Fraction MOD 2C 59.7 % LV Ejection Fraction 2C AL 58.3 % LA Diameter 3.3 cm RA Systolic Volume 4C AL 31.6 ml RA Systolic Volume 4C MOD 31.0 ml LA Sys Volume AL 44.7 cm cubed LA Sys Volume Index AL 19.7 cm cubed/m squared Aorta at Sinotubular Diameter 2.7 cm M-MODE LA Ao Ratio MM 1.0 AV Cusp Separation MM 2.6 cm DOPPLER AV Peak Velocity 111.0 cm/s MV Peak Velocity 102.0 cm/s MV Area PHT 5.0 cm squared Mitral E to A Ratio 1.2 TV Peak Velocity 174.0 cm/s TR Peak Velocity 206.0 cm/s TR Peak Gradient 17.0 mmHg TV Peak E Velocity 112.0 cm/s Right Atrial Pressure 3.0 mmHg Pulmonary Artery Systolic Pressu 20.0 mmHg PV Peak Velocity 104.0 cm/s FINDINGS Left Ventricle Normal left ventricular size, systolic function and wall thickness, with no regional wall motion abnormalities. Left ventricular ejection fraction is estimated at 60%. Normal left ventricular filling pressure. Right Ventricle The right ventricle is normal in size and function. Right Atrium The right atrium is normal in size. Left Atrium The left atrium is normal in size. Mitral Valve Structurally normal mitral valve without significant stenosis or prolapse. There is no mitral regurgitation. Aortic Valve Structurally normal aortic valve without significant sclerosis or stenosis. There is no aortic regurgitation. Tricuspid Valve Structurally normal tricuspid valve without significant stenosis or regurgitation. Pulmonary artery systolic pressure is normal. Pulmonic Valve Structurally normal pulmonic valve without significant stenosis. There is no pulmonic regurgitation. Pericardium Normal pericardium without effusion. Aorta Normal ascending aorta dimension. IVC The inferior vena cava appears normal. CONCLUSIONS 1. Normal left ventricular size, systolic function and wall thickness, with no regional wall motion abnormalities. Left ventricular ejection fraction is estimated at 60%. Normal left ventricular wall thickness. Normal diastolic filling pattern. 2. No significant chamber abnormalities. 3. No sigificant valve abnormalities. 4. There is no pericardial effusion. 5. There are no intracardiac masses. 6. Pulmonary artery systolic pressure is within normal limits. 7. Right atrial pressure is around 5 mm of mercury. Peter Rooney MD (Electronically Signed) Final Date: 26 December 2023 21:24 S
== END 2023-12-25 06:02 | disposition home or self-care (01) ==
LOC: RAD 06:02
PROVIDERS: PCP Internal Medicine; Visit Provider Internal Medicine
DX: I34.0 Nonrheumatic mitral (valve) insufficiency (principal)
CPT/HCPCS: 93306

== ENCOUNTER → 2024-04-15 15:45 | Outpatient (BNVA) | payer OTHER, SELFPAY | PROVIDERS: PCP Internal Medicine; Visit Provider Nurse Practitioner | DX: R50.9 Fever, unspecified (principal) | CPT/HCPCS: 87400 ==

== ENCOUNTER → 2024-05-25 16:35 | Outpatient (BNVA) | payer OTHER, SELFPAY | PROVIDERS: PCP Internal Medicine; Visit Provider Internal Medicine | DX: I10 Essential (primary) hypertension (principal); R06.00 Dyspnea, unspecified; R60.0 Localized edema | CPT/HCPCS: 80053; 83880 ==

== ENCOUNTER 2025-02-04 09:15 | Outpatient (CLI) | payer OTHER, SELFPAY ==
--- NOTE | 2025-02-04 | MM_ITS ---
WS: [id number] BILATERAL 3D TOMOSYNTHESIS DIGITAL SCREENING MAMMOGRAPHY WITH CAD CLINICAL INFORMATION: ANNUAL SCREENING HISTORY: Screening mammogram. No current complaints. COMPARISON: 2023 TECHNIQUE: Bilateral CC and MLO views. FINDINGS: Scattered fibroglandular densities bilaterally. No suspicious focal mass, asymmetry, calcifications, or architectural distortion. No evidence of malignancy. A few incidental punctate calcifications. MM/MM scr tomosynthesis [id number] IMPRESSION: DENSITY: There are scattered areas of fibroglandular density. BI-RADS: 2 - Benign. FOLLOW UP: 1 Year Follow-up Recommend return to annual screening mammography.
== END 2025-02-04 09:16 | disposition home or self-care (01) ==
LOC: RAD 09:15
PROVIDERS: PCP Internal Medicine; Visit Provider Nurse Practitioner Family
DX: Z12.31 Encounter for screening mammogram for malignant neoplasm of breast (principal); R92.323 Mammographic fibroglandular density, bilateral breasts; R92.1 Mammographic calcification found on diagnostic imaging of breast
CPT/HCPCS: 77063; 77067